=== PATIENT | male | born 1970 | race Caucasian/White ===

== ENCOUNTER 2019-04-16 07:52 | Day surgery (SDC) | payer OTHER, MEDICAID, SELFPAY ==
--- NOTE | 2019-04-16 | PATH_ITS ---
[facility] Accession Number: [id number] . 01 Material submitted: . anus - ANAL BIOPSY . 01 Clinical history: . DIVERTICULOSIS OF INTESTINE, PART UNSPECIFIED . 02 Diagnosis: Anus, Biopsy: Colorectal mucosa with mild features of mucosal prolapse. Anal squamous mucosa with mild active inflammation. Negative for granulomata, dysplasia or malignancy. MRV 04/17/2019 1327 Local . 02 Electronically signed: . Mark Henderson MD, PhD, Pathologist NPI- [id number] . 01 Gross description: . ANAL BIOPSY: Received in formalin are 2 fragment(s) of sheth, soft tissue measuring 0.1 x 0.1 x 0.1 cm to 0.3 x 0.2 x 0.2 cm which is entirely submitted and submitted entirely in 1 cassette(s) /[facility] [place] 04/16/20192041 Local . 02 Pathologist provided ICD-10: K57.90 . 02 CPT . 753109 Performed at: 01 [facility] [address] [facility] [place], [place], [place] [id number] MD Dru Purcell MD Phone: [phone] Performed at: 02 [facility] [address] [place], [place] [id number] MD Cristine Sepulveda MD Phone: [phone]
[2019-04-16 08:13] VITALS: BP 121/72; PULSE 58; RESP 15; TEMP 36.4; O2SAT 100; BMI 20.7
[2019-04-16] MEDS: SODIUM CHLORIDE 0.9% 1,000 ML 200 ML IV (08:23)
--- NOTE | 2019-04-16 09:01 | PM.PREOP ---
Pre-operative Note Interval Note History & Physical reviewed/Exam performed by Physician: Yes Changes to H&P: No ASA Class (for procedural sedation): II
[2019-04-16] MEDS: fentaNYL 250 MCG/5 ML INJ IV (09:30)
[2019-04-16] MEDS: MIDAZOLAM 5 MG/5 ML VIAL IV (09:30)
[2019-04-16 10:05] VITALS: BP 142/79; BP 142/97; PULSE 87; RESP 12; TEMP 36.6; O2SAT 99
[2019-04-16 10:15] VITALS: BP 136/90; PULSE 84; RESP 12; TEMP 36.4; O2SAT 98
[2019-04-16 10:30] VITALS: BP 107/70; BP 125/82; PULSE 60; PULSE 77; RESP 16; RESP 99; TEMP 36.4; TEMP 36.9; O2SAT 100
[2019-04-16 11:00] VITALS: BP 116/75; PULSE 59; RESP 16; TEMP 36.7; O2SAT 100
--- NOTE | 2019-04-16 11:06 | PM.OP.ENDO ---
Operative Date/Time/Diagnoses Date of procedure: 04/16/19 Time of procedure: 11:06 Pre-op diagnosis: rectal bleeding Post-op diagnosis: same Procedure & Clinicians Study performed: colonoscopy Same procedure as scheduled: Yes Indications: 48-year-old male with a previous colonoscopy several years ago has chronic intermittent painless rectal bleeding. His a known history of diverticulosis. Surgeon: Ha Lao Procedure Notes SCOAP/Timeout: Performed Procedure in detail: Digital rectal exam was performed that demonstrated no masses but internal hemorrhoids. The scope was carefully inserted the rectum and advanced through the colon. The quality of the prep was poor. The colon was notable for left sided diverticulosis there was no stricturing, active diverticulitis or active bleeding from the diverticulum. Throughout the colon and coming directly from the ileocecal valve was a small amount of hemorrhage. There were no masses or polyps. The scope was withdrawn after reaching the ileocecal valve. Examination of the anal canal demonstrated internal hemorrhoids with some adjacent ulceration of the tissue. Biopsy was taken from the anal canal. As I was unable to find a definitive source of bleeding I will refer the patient to gastroenterology for EGD and possible capsule endoscopy. Scope withdrawal time: 10 Sedation minutes: 29 Findings: internal hemorrhoids and other findings (blood throughout the colon and coming through the ileocecal valve) Specimen(s): other (biopsy anal canal) Complications: none Impression: intestinal bleeding Post-procedure Recommendations: Other recommendation (will refer to gastroenterology) Disposition: same day surgery
== END 2019-04-16 11:15 | disposition home or self-care (01) ==
PROVIDERS: Visit Provider Surgery
PROC: 0DJD8ZZ Inspection of Lower Intestinal Tract, Via Natural or Artificial Opening Endoscopic (ICD-10-PCS; CPT 45378; principal; 2019-04-16 09:45)
DX: K62.5 Hemorrhage of anus and rectum (principal); K57.90 Diverticulosis of intestine, part unspecified, without perforation or abscess without bleeding; K64.8 Other hemorrhoids
CPT/HCPCS: 45380; 99152; J2250; J3010